=== PATIENT | male | born 1965 | race African-American/Black ===

== ENCOUNTER 2018-11-19 23:57 | Emergency (ER) | payer SELFPAY ==
[~2018-11-19] VITALS: Ht 185.4 cm; Wt 77.1 kg
[~2018-11-19 23:57] MED LIST: NORPTMEDS CO
[2018-11-20 00:29] VITALS: BP 143/97
[2018-11-20 00:59] LABS: Basophils # (auto) 0.1 uL; Basophils % (auto) 0.9 % (0.0-2.0); Eosinophils # (auto) 0.1 uL; Eosinophils % (auto) 1.9 % (0.0-7.0); Hematocrit 42.7 % (41.0-53.0); Hemoglobin 14.1 g/dL (13.5-17.5); Lymphocytes % (auto) 31.2 % (10.0-50.0); Mean Corpuscular Hemoglobin 29.7 pg (28.0-32.0); Mean Corpuscular Hgb Conc. 33.1 g/dL (32.0-36.0); Mean Corpuscular Volume 89.6 fL (80.0-100.0); Monocytes # (auto) 0.6 uL; Monocytes % (auto) 8.5 % (0.0-12.0); Neutrophils # (auto) 3.7 uL; Neutrophils % (auto) 57.5 % (37.0-80.0); Nucleated Red Blood Cells % 0.1 %; Platelet Count (auto) 386 10^3/uL (140-450); Red Blood Cells 4.76 10^6/uL (4.5-5.90); Red Cell Distribution Width 12.9 % (11.8-14.3); White Blood Cell 6.5 10^3/uL (4.4-10.8)
[2018-11-20 01:16] LABS: Albumin 3.8 g/dL (3.4-5.0); BUN/Creatinine Ratio 15.3; Calcium 8.3 mg/dL (8.5-10.1); Potassium 3.8 mmol/L (3.5-5.1)
[2018-11-20 01:19] LABS: Bilirubin, Total 0.4 mg/dL (0.2-1.0); Total Protein 7.8 g/dL (6.4-8.2)
== END 2018-11-20 04:20 | disposition home or self-care (01) ==
LOC: ER 11-20 00:05
DX: Z04.1 Encounter for examination and observation following transport accident (principal); R51 Headache
CPT/HCPCS: 36415; 70450; 80053; 85025